=== PATIENT | female | born 1980 | race Caucasian/White ===

== ENCOUNTER 2017-07-26 01:24 | Emergency (ER) | payer BC ==
[~2017-07-26] VITALS: Ht 152.4 cm; Wt 93.3 kg
[2017-07-26 02:42] VITALS: BP 135/95
== END 2017-07-26 02:43 | disposition home or self-care (01) ==
LOC: EME 01:24
DX: T19.2XXA Foreign body in vulva and vagina, initial encounter (principal); X58.XXXA Exposure to other specified factors, initial encounter
CPT/HCPCS: 99281; 99283